=== PATIENT | female | born 1955 | race Caucasian/White ===

== ENCOUNTER → 2018-11-26 | Outpatient (CLI) | payer BC, OTHER ==
[~2018-11-26] VITALS: Ht 162.6 cm; Wt 53.7 kg
[~2018-11-26] MED LIST: CALCIUM500 M1 PO; OXYBUTYNIN 5 MG5 M2 PO; PROLIA60 MG/1 ML SUBQ; UNICOMPLEX M TA1 TA1 PO; [UNRECOGNIZED DRUG - OTHER] PO
[2018-11-26 13:53] VITALS: BP 114/74
--- NOTE | 2018-11-26 14:09 | NUR ---
Pain Clinic Assessment: 1. History of Osteoarthritis: History of Rheumatoid Arthritis: 2. Height: 5 ft. 4 in. 162.6 cm. Weight: 118.4 lb. oz. 53.706 kg. Patient's BMI: 20.3 3. Vital Signs: BP: 114/74 Pulse: 62 Resp: 16 Temp: 02 Sat: 98 ECG Mon: 4. Pain Intensity: 8 5. Fall Risk: Dizziness: N Needs help standing or walking: N Fallen in the last 3 months: N Fall risk comments: 6. Patient on Blood Thinner: None 7. History of Hypertension: N 8. Opioid Therapy greater than 6 weeks: N Opiate Contract Signed: 9. Risk Assessment Tool Provided: LOW 10. Functional Assessment Tool: 11. Recreational Drug Use: Never Drug Type: Tobacco Use: Never Smoker Tobacco Type: Amount or Packs/day: How Many Years: Alcohol Use: Yes Frequency: Weekly Quant: 5
--- NOTE | 2018-12-03 07:48 | HPC ---
[facility] [place] [address] PAIN MANAGEMENT CONSULTATION Name: BARBER MCMAHON Room #: REG SOTERO Grover.#: [id number] Admission: 11/26/18 ������������������ Attend Phys: Travis Avilez DO Discharge: ������������������ Date of : 57 Report #: [id number] THIS REPORT FOR: //name// CC: Ana Laura Frias MD DATE OF SERVICE: 11/26/2018 CHIEF COMPLAINT: Low back pain, left lower extremity pain with paresthesias. HISTORY OF PRESENT ILLNESS: As you know, the patient is a very pleasant 63-year-old female who reports acute onset of low back pain, left lower extremity pain and paresthesias, presented in 08/2018. She denies any specific injury or trauma that may have led to symptom development. She has trialed [id number] treatment options. Rest, relaxation and some stretching exercises, but did not notice improvement in symptoms. She sought further evaluation through her primary care physician who referred the patient to see Dr. hernandez at [facility]. The patient was seen by Dr. Breen on 11/07/2018. It was discussed with the patient the findings of a recent MRI, which showed significant changes at the L5-S1 level, believed to be the source of her left lower extremity symptoms. They discussed options for treatment. At that visit including surgical options. They chose to begin with conservative treatment and the patient was subsequently referred to our clinic to trial a lumbar epidural injection under fluoroscopic guidance to address lumbar radicular symptoms. The patient indicates her pain is periodic, describes the pain as cramping, aching, and throbbing along with numbness and tingling. She places current pain score at 8/10, daily average of 6-8/10 worst pain has been is 9/10. The patient states that her pain is exacerbated with unknown activities, improves with nothing to date. She has been referred to our service by her neurosurgeon, Dr. Ana Laura Breen for evaluation for lumbar radiculopathy. PAST MEDICAL HISTORY: 1. History of seizure activity. 2. Pelvic floor dysfunction. PAST SURGICAL HISTORY: 1. Hysterectomy and pelvic floor repair. 2. Open reduction and internal fixation of a left foot injury. SOCIAL HISTORY: The patient denies tobacco, IV or illicit drug use. Admits to approximately 5 alcoholic beverages per week. 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 She is working, not receiving workmen's compensation [place] [address] PAIN MANAGEMENT CONSULTATION Name: BARBER MCMAHON [id number] Admission: 11/26/18 ������������������ Attend Phys: Travis Avilez DO Discharge: ������������������ Date of : 57 Report #: [id number] to obtain disability benefits. She is not in litigation in regards to pain. She is unaccompanied at today's visit. REVIEW OF SYSTEMS: Positive for wearing corrective eyewear, hearing loss with tinnitus, constipation, frequent urination, low back pain, left lower extremity pain and paresthesias, numbness and tingling sensations. All other review of systems negative per 12-point review of systems other than those listed in history of present illness. Pain impact score 32 of 70 indicating moderate interference of daily activities secondary to pain. ALLERGIES: ALENDRONATE. CURRENT MEDICATIONS: Prolia 60 mg subcutaneous twice a year, oxybutynin 5 mg twice a day, multivitamin 1 tab per day, calcium carbonate 500 mg once a day, vitamin D and vitamin E supplements once a day. IMAGING: MRI lumbar spine obtained 10/22/2018 shows T12-L1 unremarkable, L1-L2 unremarkable, L2-L3 shows no central canal or neural foraminal stenosis, mild facet arthropathy. On 07/22/2018 shows effacement of ventral thecal sac due to disk desiccation and disk space narrowing with circumferential disk bulge. This narrows the canal to 8.5 mm. There is moderate bilateral hypertrophic degenerative changes and interspinal spurring, ligamentum flavum hypertrophy is present with 5 mm thickness, mild bilateral symmetric neural foraminal narrowing and mild effacement of the undersurface of both exiting L3 nerve roots. L4-L5 mild right paracentral right foraminal disk bulge, bilateral facet arthropathy, ligamentum flavum hypertrophy, mild central canal stenosis with measurement of 9 mm. There is a mild bilateral symmetrical neural foraminal stenosis. L5-S1, broad-based left paracentral disk protrusion associated with posterior zone of hyperintensity consistent with annular tear, advanced bilateral hypertrophic degenerative changes of the facet joints along with ligamentum flavum hypertrophy. There is left lateral recess narrowing, posterior displacing the left S1 nerve root and effacing the nerve root by the disk protrusion, mild neural foraminal narrowing, but no significant L5 nerve root effacement. PHYSICAL EXAMINATION: VITAL SIGNS: Blood pressure 114/74, pulse 62, respiratory rate 16 and unlabored. The patient is 98% on room air, height 5 feet 4 inches tall, weight 118.4 pounds, BMI calculated 20.3. GENERAL: Well-developed, well-nourished, well-hydrated 63-year-old female appearing stated age, placing current pain score 8/10. HEENT: Normocephalic, atraumatic. Pupils equal, round, reactive to light. Extraocular muscles are intact. Sclerae nonicteric without injection. NEUROLOGIC: Cranial nerves II-XII grossly intact. Speech is fluent. [facility] [address] [place] [address] PAIN MANAGEMENT CONSULTATION Name: BARBER MCMAHON Room #: REG [facility].#: [id number] Admission: 11/26/18 ������������������ Attend Phys: Travis Avilez DO Discharge: ������������������ Date of : 57 Report #: [id number] patient deemed an excellent historian. LUNGS: Clear, no wheeze, rhonchi or rales. CARDIOVASCULAR: Regular. No appreciable gallop, no rub. ABDOMEN: Soft, nontender, nondistended, normal active bowel sounds. EXTREMITIES: Show no clubbing, no cyanosis, and no edema. MUSCULOSKELETAL: Lower extremity strength equal and symmetrical 5/5, intact to light touch from L1 through S2 dermatomes. Seated straight leg raising negative. Supine straight leg raising positive on the left. Angeline's test negative. Modified Gaenslen's positive for axial low back pain. Ankle clonus negative. Babinski is negative. Station and gait are normal. The patient is able to toe walk, heel walk and tandem gait without complications. Lumbar provocation testing is met with mild increase in pain. There is mild restriction of motion with rotation and forehead flexion. ASSESSMENT: 1. Symptomatic lumbar radiculopathy. 2. Spinal stenosis of lumbar spine. 3. Displacement of lumbar intervertebral disk with radiculopathy. 4. Lumbosacral spondylosis with radiculopathy. 5. Neural foraminal stenosis of lumbar spine. 6. Facet arthropathy of the lumbar spine. 7. Lumbar degeneration. 8. Intractable pain. PLAN: 1. Based on today's physical exam and history the patient has provided, the description the patient uses in regards to pain as well as location of symptoms and the findings of her recent MRI showing changes at the L5-S1 level corresponding to the left nerve root impingement of the S1 nerve likely source of the patient's lumbar radiculopathy. The patient and I discussed treatment options for lumbar radicular symptoms today, the following was discussed with the patient. We discussed physical therapy, stretching exercises and traction techniques as a treatment course. This is very conservative but could help the patient overall. We discussed medication management changes adding neuropathic pain medications in hopes of improving overall pain. We discussed epidural injections for which the patient was referred to our service. We also discussed spinal cord stimulator therapy and ultimately surgical options to decompress the S1 nerve root at the L5-S1 level. After reviewing the risks and benefits of all proposed treatment options, the patient chose to look towards medication management initially and then an epidural injection after she returns from her trip to [place]. The patient will be started on Lyrica. We have provided her samples of the medication 50 mg dose, will begin 1 tab p.o. at bedtime in 3 [place] [address] PAIN MANAGEMENT CONSULTATION Name: BARBER MCMAHON Room #: REG SOTERO Lozoya#: [id number] Admission: 11/26/18 ������������������ Attend Phys: Travis Avilez DO Discharge: ������������������ Date of : 57 Report #: [id number] not noting side effects such as somnolence, decreased mental acuity, disorientation, confusion and no improvement in symptoms, she was then to escalate the dose to 100 mg p.o. at bedtime. We recommend she take the medication approximately one hour before bedtime. She is to watch for any side effects with increasing the medication including as indicated above sleepiness, disorientation, confusion, mental slowing. If she notes side effects, discontinue to the dose prior continue the medication while on her trip. The patient was given samples of Lyrica 50 mg tablet. I have given her 63 tablets for trial these were given to her in sample form today. She can contact our clinic with any questions or concerns. 2. The patient and I did discuss the possibility of undergoing a lumbar epidural injection. We will begin the preauthorization process for this patient to undergo the procedure. She wishes to delay the procedure until she returns from her trip to [place], which is planned starting next Sunday. When she returns from this 10-day trip, she will then return to undergo the first in a series of epidural injections. We will begin the authorization process and have this available for when she returns to undergo that procedure. We are hopeful the patient will see good benefit with the medication provided and will not need this epidural injection, but we do wish to have this approved, so that we have available if she requires. 3. We wish to thank the patient's neurosurgeon, Dr. Ana Laura Breen for the referral of the patient to our clinic. We will keep you apprised of response to treatment as we address her lumbar radicular symptoms secondary to the findings at the L5-S1 level causing impingement of the left S1 nerve root, correlating the patient's current symptoms. Again, we wish to thank you for the opportunity to see the patient in consultation. ��������������������������������������������� <ELECTRONICALLY SIGNED> ���������������������������������������� By: Travis Avilez DO ��������������������������������������������� 12/03/18 [id number] Travis Avilez DO /nt
== END ==
LOC: PAIN 09:43
DX: M47.27 Other spondylosis with radiculopathy, lumbosacral region (principal); M48.062 Spinal stenosis, lumbar region with neurogenic claudication; M51.16 Intervertebral disc disorders with radiculopathy, lumbar region; M12.88 Other specific arthropathies, not elsewhere classified, other specified site; G89.4 Chronic pain syndrome; Z79.899 Other long term (current) drug therapy

== ENCOUNTER → 2018-12-17 | Outpatient (CLI) | payer BC, OTHER ==
[~2018-12-17] VITALS: Ht 162.6 cm; Wt 55.5 kg
--- NOTE | ~2018-12-17 | HPC ---
[facility] [address] [place] [address] PAIN MANAGEMENT CONSULTATION Name: BARBER MCMAHON Room #: REG SOTERO Devora#: [id number] Admission: 12/17/18 ������������������ Attend Phys: Travis Avilez DO Discharge: ������������������ Date of : 57 Report #: [id number] THIS REPORT FOR: //name// CC: Ana Laura Frias DATE OF SERVICE: 12/17/2018 REFERRING PHYSICIAN: Ana Laura Breen MD. PRIMARY CARE PHYSICIAN: Meseret Frias MD. CHIEF COMPLAINT: Low back pain, left lower extremity pain and paresthesias. HISTORY OF PRESENT ILLNESS: As you know, the patient is a very pleasant 63-year-old female who reports acute onset of low back pain, left lower extremity pain and paresthesias, presented 08/2018. Denied any specific injury or trauma that led to symptom development. She sought evaluation with Dr. Breen at [facility] where they discussed options for treatment. She was referred to our clinic to trial epidural injections to determine if her symptoms could improve with more conservative treatment options. We saw the patient in consultation on 11/26/2018 where she was describing pain levels of up to 8-9/10. She was diagnosed with symptomatic lumbar radiculopathy secondary to spinal stenosis of the lumbar spine. Her spinal stenosis is multifactorial due to displaced lumbar intervertebral disks and facet arthropathy causing central canal stenosis and neural foraminal stenosis. We discussed treatment options at that initial visit and the patient chose to undergo a lumbar epidural injection. We have completed the preauthorization process and the patient has returned to undergo the first in the series of epidural injections in hopes of improving pain. Today, the patient is placing pain score at 5-6/10. She denies new injury, trauma or any changes in medical history since our last visit. ALLERGIES: ALENDRONATE. CURRENT MEDICATIONS: Vitamin E 400 units per day, calcium carbonate 500 mg once a daily, multivitamin 1 tab per day, oxybutynin 5 mg per day, Prolia 60 mg subcutaneous twice a year. SOCIAL HISTORY: The patient denies tobacco, IV or illicit drug use. Admits to approximately 5 alcohol beverages per week. 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 She is working, not receiving workmen's compensation, unaccompanied today. IMAGING: No new imaging available. [address] [address] PAIN MANAGEMENT CONSULTATION Name: BARBER MCMAHON Room #: REG [facility] Lozoya#: [id number] Admission: 12/17/18 ������������������ Attend Phys: Travis Avilez DO Discharge: ������������������ Date of : 57 Report #: [id number] PHYSICAL EXAMINATION: VITAL SIGNS: Blood pressure 100/64, pulse 56, respiratory rate 14 and unlabored. The patient is 100% on room air. Height 5 feet 4 inches tall, weight 122.4 pounds, BMI calculated 21.0. GENERAL: Well-developed, well-nourished, well-hydrated 63-year-old female appearing stated age, placing current pain score 5-6/10. HEENT: Normocephalic, atraumatic. Pupils equal, round, reactive to light. EXTREMITIES: Show no clubbing, no cyanosis, and no edema. MUSCULOSKELETAL: Lower extremity strength appears symmetrical 5/5, intact to light touch from L1 through S2 dermatomes. Seated straight leg raising negative. Supine straight leg raising positive left. Gait mildly antalgic favoring left lower extremity over right. ASSESSMENT: 1. Symptomatic lumbar radiculopathy. 2. Spinal stenosis of lumbar spine. 3. Displacement of lumbar intervertebral disk with radiculopathy. 4. Lumbosacral spondylosis with radiculopathy. 5. Neural foraminal stenosis of lumbar spine. 6. Facet arthropathy of the lumbar spine. 7. Lumbar degeneration. 8. Chronic intractable pain. PLAN: 1. The patient returns today in followup visit to undergo first in a series of lumbar epidural injections under fluoroscopic guidance. We did provide the patient a small dose of Xanax 0.25 mg prior to the procedure for anxiety. She is prepared to undergo the procedure today. We have consented her to undergo the procedure with the risks that include but are not necessarily limited to bleeding, bruising, infection, worsening pain, no relief of pain and also risk of temporary or permanent muscle weakness, temporary or permanent nerve damage, possible paralysis and . The patient states understood and wished to proceed. 2. No medication changes made at today's visit. The patient will continue current medical therapy as previously prescribed. 3. We will see the patient back in followup visit in approximately 31 days. At that time, we will review the efficacy of the first in a series of lumbar epidural injection to determine if next in the series would be necessary. PROCEDURE NOTE DESCRIPTION OF PROCEDURE: L5-S1 left paramedian epidural steroid injection under fluoroscopic guidance. This is the first procedure of the first series that the patient is undergoing. [facility] [address] [place] [address] PAIN MANAGEMENT CONSULTATION Name: BARBER MCMAHON Room #: REG CLCornelio Lozoya#: [id number] Admission: 12/17/18 ������������������ Attend Phys: Travis Avilez DO Discharge: ������������������ Date of : 56 Report #: [id number] After obtaining written consent, the patient was taken back to the fluoroscopy suite, placed in a prone position with pillow under the abdomen to decrease lumbar lordosis. The skin overlying the lumbosacral area was then prepped and draped in aseptic fashion. The L5-S1 vertebral interspace was then identified by AP fluoroscopy. The skin and subcutaneous tissue overlying the target site of injection was anesthetized with 3 mL 1% lidocaine. A 20-gauge 3-1/2 inch Tuohy needle was then advanced under fluoroscopic guidance towards the epidural space using a left paramedian approach. The epidural space was identified using loss of resistance to air technique. After negative aspiration for heme or cerebrospinal fluid, a total of 1 mL of Omnipaque was injected. A lumbar epidurogram was confirmed using both AP and lateral fluoroscopy. After negative aspiration for heme or cerebrospinal fluid, 5 mL of a solution containing 2 mL, 40 mg per mL 80 mg total triamcinolone, 3 mL of lidocaine 1% was injected in increments. Contrast spread was noted posterior epidural space. The needle was then retracted approximately half way and needle tract flushed with 1 mL of 1% lidocaine. Needle was then removed. There were no apparent sensory or motor deficits in the lower extremity following the procedure. A sterile bandage was placed over the injection site. The heart rate, pulse, oximetry and blood pressure were continuously monitored after the procedure. There were no apparent complications. The patient tolerated the procedure well and was carefully escorted to the recovery room in stable condition. There were no apparent complications. After meeting discharge criteria, the patient was then discharged home. ��������������������������������������������� ���������������������������������������� By: ��������������������������������������������� [id number] Travis Avilez DO /denny
[2018-12-17 10:05] VITALS: BP 100/64
--- NOTE | 2018-12-17 10:28 | NUR ---
Pain Clinic Assessment: 1. History of Osteoarthritis: DENIES History of Rheumatoid Arthritis: DENIES 2. Height: 5 ft. 4 in. 162.6 cm. Weight: 122.4 lb. oz. 55.520 kg. Patient's BMI: 21.0 3. Vital Signs: BP: 100/64 Pulse: 56 Resp: 14 Temp: 02 Sat: 100 ECG Mon: 4. Pain Intensity: 5-6 5. Fall Risk: Dizziness: N Needs help standing or walking: N Fallen in the last 3 months: N Fall risk comments: 6. Patient on Blood Thinner: None 7. History of Hypertension: N 8. Opioid Therapy greater than 6 weeks: N Opiate Contract Signed: 9. Risk Assessment Tool Provided: LOW 10. Functional Assessment Tool: 11. Recreational Drug Use: Never Drug Type: Tobacco Use: Never Smoker Tobacco Type: Amount or Packs/day: How Many Years: Alcohol Use: Yes Frequency: Daily Quant: WITH DINNER
== END | disposition home or self-care (01) ==
LOC: PAIN 06:52
DX: M51.16 Intervertebral disc disorders with radiculopathy, lumbar region (principal); M48.061 Spinal stenosis, lumbar region without neurogenic claudication; M47.27 Other spondylosis with radiculopathy, lumbosacral region; M47.26 Other spondylosis with radiculopathy, lumbar region; G89.29 Other chronic pain; Z88.8 Allergy status to other drugs, medicaments and biological substances; Z79.899 Other long term (current) drug therapy; Z98.890 Other specified postprocedural states

== ENCOUNTER → 2019-01-28 | Outpatient (CLI) | payer BC, OTHER ==
[~2019-01-28] VITALS: Ht 162.6 cm; Wt 54.0 kg
[~2019-01-28] MED LIST changes: +MAGNESIUM PO; +NEURONTIN 300300 M1 PO; +OXYBUTYNIN CHLOR5 M1 PO; +POTASIUM PO
[2019-01-28 09:16] VITALS: BP 102/70
--- NOTE | 2019-01-28 09:36 | NUR ---
Pain Clinic Assessment: 1. History of Osteoarthritis: DENIES History of Rheumatoid Arthritis: DENIES 2. Height: 5 ft. 4 in. 162.6 cm. Weight: 119.0 lb. oz. 53.978 kg. Patient's BMI: 20.4 3. Vital Signs: BP: 102/70 Pulse: 70 Resp: 14 Temp: 02 Sat: 100 ECG Mon: 4. Pain Intensity: 0 5. Fall Risk: Dizziness: Y Needs help standing or walking: N Fallen in the last 3 months: N Fall risk comments: 6. Patient on Blood Thinner: None 7. History of Hypertension: N 8. Opioid Therapy greater than 6 weeks: N Opiate Contract Signed: 9. Risk Assessment Tool Provided: LOW 10. Functional Assessment Tool: 11. Recreational Drug Use: Never Drug Type: Tobacco Use: Never Smoker Tobacco Type: Amount or Packs/day: How Many Years: Alcohol Use: Yes Frequency: Quant:
--- NOTE | 2019-02-11 13:40 | HPC ---
[address] [address] PAIN MANAGEMENT CONSULTATION Name: BARBER MCMAHON Room #: REG SOTERO Grover.#: [id number] Admission: 01/28/19 ������������������ Attend Phys: Travis Avilez DO Discharge: ������������������ Date of : 57 Report #: [id number] THIS REPORT FOR: //name// CC: Ana Laura Frias MD DATE OF SERVICE: 01/28/2019 CHIEF COMPLAINT: Low back pain, left lower extremity pain and paresthesias. HISTORY OF PRESENT ILLNESS: As you know, the patient is a very pleasant 63-year-old female who was referred to our clinic by her Neurosurgeon, Dr. Ana Laura Breen to undergo lumbar epidural injection under fluoroscopic guidance to address acute lumbar radiculopathy. We saw the patient initially on 11/26/2018 where she was at consultation due to third libertarian payer restrictions, authorization had to be obtained and the patient in followup visit to undergo a lumbar epidural injection at our next visit. She did very well with this epidural injection, reporting today pain level of 0/10. She reports near 100% improvement overall in symptoms from a pain standpoint, but she continues to experience some numbness and tingling sensations, which are "just irritating". She returns to discuss treatment options for these residual radicular symptoms. She denies any new injury, trauma or any changes in medical history since her last visit. ALLERGIES: ALENDRONATE. CURRENT MEDICATIONS: Vitamin E 400 units per day, calcium carbonate 500 mg once a day, multivitamin 1 tab per day, oxybutynin 5 mg per day, Prolia 60 mg subcutaneous twice a year. SOCIAL HISTORY: The patient denies tobacco, IV or illicit drug use. Admits to approximately 5 alcohol beverages per week. 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 IMAGING: There is no new imaging available. PHYSICAL EXAMINATION: VITAL SIGNS: Blood pressure 102/70, pulse 70, respiratory rate 14 and unlabored. The patient is 100% on room air. Height 5 feet 4 inches tall, weight 119 pounds, BMI calculated 20.4. GENERAL: Well-developed, well-nourished, well-hydrated 63-year-old female appearing stated age, pain is rated today at 0/10. HEENT: Normocephalic, atraumatic. Pupils are equal, round, reactive to light. EXTREMITIES: Show no clubbing, no cyanosis, [place] [address] PAIN MANAGEMENT CONSULTATION Name: NEW MILFORDBARBER Room #: REG SOTERO Ren.R.#: [id number] Admission: 01/28/19 ������������������ Attend Phys: Travis Avilez DO Discharge: ������������������ Date of : 57 Report #: [id number] MUSCULOSKELETAL: Lower extremity strength equal and symmetrical 5/5, intact to light touch from L1 through S2 dermatomes. Seated straight leg raising negative. Supine straight leg raising positive on the left with paresthesias only. ASSESSMENT: 1. Symptomatic lumbar radiculopathy. 2. Spinal stenosis of lumbar spine. 3. Displacement of lumbar intervertebral disk with radiculopathy. 4. Lumbosacral spondylosis with radiculopathy. 5. Neural foraminal stenosis of lumbar spine. 6. Facet arthropathy of the lumbar spine. 7. Lumbar degeneration. 8. Chronic intractable pain. PLAN: 1. The patient has returned today in followup visit where she is indicating a complete resolution of her lumbar radicular pain. She continues to experience paresthesias in the foot area and she describes this as numbness and tingling. She has returned today in followup visit to discuss possible treatment options for the residual symptoms. We discussed with the patient that options for treatment would include reinitiation of physical therapy. We discussed neuropathic pain medication in the form of gabapentin or Lyrica as a possible treatment course. We also discussed repeating epidural injection in hopes of improving paresthesias and ultimately surgical options. After reviewing risks and benefits of all proposed treatment options, the patient chose to make changes in her medication management. 2. The patient was provided prescription of gabapentin 300 mg dose. We will start 1 tab p.o. at bedtime for 3 nights, then increase to 2 tabs p.o. at bedtime for 3 nights and then increase to 3 tabs p.o. at bedtime for a total of 900 mg. The patient was given #90 tablets. She was advised to watch for side effects of sleepiness, disorientation, confusion, mental slowing with the use of medication. If she notes any side effects, contact our clinic after reducing the dose to the dose prior to those side effects. The patient was advised we may need to titrate this medication further to reach efficacy. We will determine this at our next visit. 3. We are pleased to see the patient has done well. We will see her back in followup visit for further adjustments in medication management or to look towards interventional treatments. ��������������������������������������������� <ELECTRONICALLY SIGNED> ���������������������������������������� By: Travis Avilez DO ��������������������������������������������� 02/11/19 1340 1811 0100 Travis Avilez DO /nt
== END ==
LOC: PAIN 06:43
DX: M47.26 Other spondylosis with radiculopathy, lumbar region (principal); M48.062 Spinal stenosis, lumbar region with neurogenic claudication; M51.16 Intervertebral disc disorders with radiculopathy, lumbar region; M12.88 Other specific arthropathies, not elsewhere classified, other specified site; G89.4 Chronic pain syndrome

== ENCOUNTER → 2019-06-11 | Outpatient (CLI) | payer BC, OTHER ==
[~2019-06-11] VITALS: Ht 162.6 cm; Wt 56.3 kg
[~2019-06-11] MED LIST changes: +NEURONTIN300 MG PO
[2019-06-11 09:00] VITALS: BP 105/68
--- NOTE | 2019-06-11 09:05 | NUR ---
Pain Clinic Assessment: 1. History of Osteoarthritis: DENIES History of Rheumatoid Arthritis: DENIES 2. Height: 5 ft. 4 in. 162.6 cm. Weight: 124.2 lb. oz. 56.337 kg. Patient's BMI: 21.3 3. Vital Signs: BP: 105/68 Pulse: 57 Resp: 14 Temp: 02 Sat: 100 ECG Mon: 4. Pain Intensity: 4-5 5. Fall Risk: Dizziness: N Needs help standing or walking: N Fallen in the last 3 months: N Fall risk comments: 6. Patient on Blood Thinner: None 7. History of Hypertension: N 8. Opioid Therapy greater than 6 weeks: N Opiate Contract Signed: 9. Risk Assessment Tool Provided: LOW 10. Functional Assessment Tool: 11. Recreational Drug Use: Never Drug Type: Tobacco Use: Never Smoker Tobacco Type: Amount or Packs/day: How Many Years: Alcohol Use: Yes Frequency: Quant:
--- NOTE | 2019-06-12 08:26 | HPC ---
[facility] [address] [place] [address] PAIN MANAGEMENT CONSULTATION Name: BARBER MCMAHON Room #: REG SINDHUCornelio Lozoya#: [id number] Admission: 06/11/19 Attend Phys: Padmini Sun Discharge: Date of : 57 Report #: [id number] THIS REPORT FOR: //name// CC: Padmini Agrawal MD DATE OF SERVICE: 06/11/2019 CHIEF COMPLAINT: Low back pain, left lower extremity pain and paresthesias. HISTORY OF PRESENT ILLNESS: This is a very pleasant 63-year-old female who returns to the pain clinic today to report that her pain has returned in her left leg. It does radiate into her foot. She at this time is not experiencing any back pain. She is also having severe cramping, and numbness and tingling in this left leg. It started at the end of April. She had been taking some gabapentin at bedtime and feels that it is beneficial when she is able to take that medication, though she is out and is requesting a refill today. Her pain score today is a 4/5, again characterizes as cramping, numbness, tingling, stabbing, sharp pain. She feels that the medication as well as a previous injection was very beneficial, though she does not feel that she is needing another lumbar epidural steroid injection at this time. ALLERGIES: ALENDRONATE. CURRENT LIST OF MEDICATIONS: Gabapentin 300 mg at bedtime, magnesium, oxybutynin, vitamin D, calcium, multivitamin, and Prolia. PQRS: 1. The patient denies any rheumatoid or osteoarthritis. 2. Height is 5 feet 4 inches, weight is 124, BMI is 21. 3. Vital signs 105/68, pulse is 57, respirations 14, oxygen sat is 100. 4. Pain score is 4-5. 5. Denies dizziness, does not need help walking or standing, has not fallen in the last 3 months. 6. The patient is not on any blood thinners or medicine for hypertension. 7. Opiate therapy: The patient denies. 8. Risk assessment tool is low. Functional assessment is 32/70. 9. Recreational drug use, she denies, not a smoker, and occasionally drinks alcohol. PHYSICAL EXAMINATION: GENERAL: This is an alert and orientated, 63-year-old female who appears her stated age, placing her current pain score at 4/10. [address] [address] PAIN MANAGEMENT CONSULTATION Name: BARBER MCMAHON Room #: REG CLI Devora#: [id number] Admission: 06/11/19 Attend Phys: Padmini Sun Discharge: Date of : 57 Report #: [id number] HEENT: Normocephalic, atraumatic. Extraocular eye muscles are intact. EXTREMITIES: No clubbing, no cyanosis, no edema. MUSCULOSKELETAL: Lower extremity strength appears symmetrical and intact to light touch from L1-S2. Seated straight leg raising is negative and supine straight leg raising is positive on the left. She has a slightly antalgic gait. Denies any lumbar back pain currently. ASSESSMENT: 1. Symptomatic lumbar radiculopathy. 2. Spinal stenosis of the lumbar spine. 3. Displacement of the lumbar intervertebral disk with radiculopathy. 4. Lumbosacral spondylosis with radiculopathy. 5. Intractable back pain. 6. Lumbar degeneration. PLAN: 1. We discussed treatment options with the patient today. The patient reports that her lumbar epidural steroid injection in the past was very beneficial in controlling her pain, though she does not feel that she is having significant enough pain to warrant having another one at this time. She is wondering about other options. We did discuss the neuropathic pain medications that were beneficial. The patient has been taking 1-2 tablets at bedtime that does relieve some of her discomfort. We will refill her gabapentin 300 mg, #60 with 3 additional refills for the patient to take. We did remind the patient of the side effects of these medications, especially taking them as needed. 2. We discussed physical therapy, stretching exercises as a treatment option as well as nonsteroidal anti-inflammatories. The patient is limited on her intake of oral anti-inflammatories due to tinnitus in her right ear. The patient may try some roak-dct-pertdai anti-inflammatory creams. 3. I encouraged the patient if her pain symptoms increase that Dr. Avilez would gladly repeat her epidural steroid injection, which she did have 100% relief for several months. The patient states she will call as needed. 4. The patient is seen today in collaboration with Dr. Travis Avilez. <ELECTRONICALLY SIGNED> By: Padmini 06/12/19 0826 0952 28 Padmini Sun /denny
== END ==
LOC: PAIN 06:48
DX: M51.16 Intervertebral disc disorders with radiculopathy, lumbar region (principal); M48.061 Spinal stenosis, lumbar region without neurogenic claudication; M47.27 Other spondylosis with radiculopathy, lumbosacral region; G89.4 Chronic pain syndrome

== ENCOUNTER → 2021-06-14 | Outpatient (CLI) | payer BC, OTHER ==
[~2021-06-14] VITALS: Ht 162.6 cm; Wt 55.7 kg
[~2021-06-14] MED LIST changes: +FLEXERIL PO
[2021-06-14 10:14] VITALS: BP 120/75
--- NOTE | 2021-06-14 10:19 | NUR ---
Pain Clinic Assessment: 1. History of Osteoarthritis: DENIES History of Rheumatoid Arthritis: DENIES 2. Height: 5 ft. 4 in. 162.6 cm. Weight: 122.8 lb. oz. 55.702 kg. Patient's BMI: 21.1 3. Vital Signs: BP: 120/75 Pulse: 78 Resp: 18 Temp: 02 Sat: 99 ECG Mon: 4. Pain Intensity: 8 5. Fall Risk: Dizziness: N Needs help standing or walking: N Fallen in the last 3 months: N Fall risk comments: 6. Patient on Blood Thinner: None 7. History of Hypertension: N 8. Opioid Therapy greater than 6 weeks: N Opiate Contract Signed: 9. Risk Assessment Tool Provided: LOW 10. Functional Assessment Tool: 11. Recreational Drug Use: Never Drug Type: Tobacco Use: Never Smoker Tobacco Type: Amount or Packs/day: How Many Years: Alcohol Use: Yes Frequency: Quant:
--- NOTE | 2021-06-15 08:15 | HPC ---
[facility] [place] [address] PAIN MANAGEMENT CONSULTATION Name: BARBER MCMAHON Room #: REG SOTERO Devora#: [id number] Admission: 06/14/21 Attend Phys: Travis Avilez DO Discharge: Date of : 57 Report #: [id number] THIS REPORT FOR: cc: Meseret Frias MD, Jennifer S. MD Johnson, James E. DO ~ cc: Meseret Frias MD DATE OF SERVICE: 06/14/2021 CHIEF COMPLAINT: Low back pain, recurrent left lower extremity pain with paresthesias. HISTORY OF PRESENT ILLNESS: As you know, the patient is a very pleasant 65-year-old female, who returns to our pain clinic today with recurrence of low back pain, left lower extremity pain with paresthesias consistent with her lumbar radiculopathy. We last saw the patient in consultation, 06/09/2019, where we made some adjustments in her medication management. She had undergone an epidural injection on 01/28/2019, with excellent improvement in overall pain. She reported near 80-90% improvement in symptoms with the epidural injection. Unfortunately, over the past couple of weeks, her pain has begun to return. She denies injury or trauma. She returns today requesting a lumbar epidural injection under fluoroscopic guidance to address the recurrence of symptoms. She has trialled nvea-ruj-gdxzqmp medications, rest, relaxation and stretching exercises without benefit. She describes the pain more of a constant sensation with cramping, numbness, tingling, stabbing, electrical-like sharp sensations, radiating down the leg. She indicates pain is exacerbated with sitting, standing for any length of time or lying down, improves with epidural injections and medication management. She returns today in followup visit with recurrence of lumbar radiculopathy and requesting a lumbar epidural injection under fluoroscopic guidance. ALLERGIES: ALENDRONATE. CURRENT MEDICATIONS: Cyclobenzaprine, gabapentin, magnesium oxide, oxybutynin, vitamin D, vitamin E, calcium carbonate, multivitamin and Prolia. SOCIAL HISTORY: The patient denies tobacco, alcohol or IV or illicit drug use. She is unaccompanied at today's visit. IMAGING: No new imaging available. PHYSICAL EXAMINATION: VITAL SIGNS: Blood pressure 120/75, pulse 78, respiratory rate 18 and unlabored. The patient is 99% on room air. Height 5 feet 4 inches tall, weight 122.8 pounds, BMI calculated 21.1. GENERAL: A well-developed, well-nourished, well-hydrated 65[place] [address] PAIN MANAGEMENT CONSULTATION Name: LISANDROBARBER Room #: REG SOTERO Lozoya#: [id number] Admission: 06/14/21 Attend Phys: Travis Avilez DO Discharge: Date of : 57 Report #: [id number] appearing stated age, pain is rated today at 8/10. HEENT: Normocephalic, atraumatic. Pupils are round. She is wearing a mask in compliance with COVID-19 regulations and hospital policy. EXTREMITIES: Show no clubbing. No cyanosis. No appreciable edema. MUSCULOSKELETAL: Lower extremity strength today is symmetrical, 5/5. Muscle bulk and tone is symmetrical in comparing left lower extremity to right. Seated straight leg raising is negative. Supine straight leg raising positive on the left approximately 65-degree angle. Ankle clonus negative. Babinski is negative. Gait is slightly antalgic appears to be favoring left lower extremity over the right. Able to toe walk and heel walk. ASSESSMENT: 1. Symptomatic lumbar radiculopathy. 2. Spinal stenosis of lumbar spine. 3. Displacement of lumbar intervertebral disk with radiculopathy. 4. Lumbosacral spondylosis with radiculopathy. 5. Lumbar degeneration. PLAN: 1. The patient returns today in followup visit having recurrence of lumbar radicular symptoms. The patient states she was doing very well until just recently, approximately 2-3 weeks ago where she began to experience progressively worsening pain and numbness and tingling. She trialled tuky-iel-dlibony medications, rest, relaxation and stretching exercises without benefit. She has made today's appointment to discuss the possibility of undergoing a lumbar epidural injection under fluoroscopic guidance. She has noted excellent benefit with the injection provided in 2019 with resolution of symptoms until just recently. The patient and I discussed the epidural injection requested and other treatment options. She chose to move forward with the epidural injection as she has seen benefit in the past. She has been advised risks and benefits of the procedure, states understood and wished to proceed. 2. No medication changes made at today's visit. The patient will continue current medical therapy as prior prescribed. 3. Plan to see the patient back in followup visit on an as needed basis for the next in the series of lumbar epidural injections. I am hopeful the patient will once again see good and prolonged benefit with the procedure provided today. PROCEDURE NOTE DESCRIPTION OF PROCEDURE: L5-S1 left parasagittal epidural steroid injection under fluoroscopic guidance. After obtaining written consent, the patient was taken back to fluoroscopy suite, placed in prone position pillow under abdomen to decrease lumbar lordosis. Skin overlying lumbosacral area prepped and draped in aseptic [address] [address] PAIN MANAGEMENT CONSULTATION Name: BARBER MCMAHON Room #: REG Cornelio Lozoya#: [id number] Admission: 06/14/21 Attend Phys: Travis Avilez DO Discharge: Date of : 57 Report #: [id number] fashion. L5-S1 vertebral interspace identified by AP fluoroscopy. Skin and subcutaneous tissue overlying target site injection anesthetized with 3 mL 1% lidocaine. A 20 gauge 3-1/2 inch Tuohy needle advanced under fluoroscopic guidance towards the epidural space using a left parasagittal approach. Epidural space identified using loss of resistance to air technique. After negative aspiration for heme or cerebrospinal fluid, 1 mL of Omnipaque injected. Lumbar epidurogram was confirmed using both AP and lateral fluoroscopy. After negative aspiration for heme or cerebrospinal fluid, 5 mL solution containing 2 mL 40 mg per mL 80 mg total triamcinolone along with 3 mL of lidocaine, 1% injected slowly. Needle retracted chcf flushed with 1 mL of 1% lidocaine, then removed. Sterile bandage placed over injection site. No new motor deficits present in lower extremity following procedure. The patient tolerated the procedure well, carefully escorted to recovery room in stable condition. No apparent complications. After meeting discharge criteria, the patient discharged home. <ELECTRONICALLY SIGNED> By: Travis Avilez DO 06/15/21 0815 1113 2209 Travis Avilez DO /nt
== END | disposition home or self-care (01) ==
LOC: PAIN 08:44
PROVIDERS: ATTEND Anesthesiology Pain Medicine
DX: M51.16 Intervertebral disc disorders with radiculopathy, lumbar region (principal); M48.061 Spinal stenosis, lumbar region without neurogenic claudication; M47.27 Other spondylosis with radiculopathy, lumbosacral region; G89.29 Other chronic pain; Z98.890 Other specified postprocedural states; Z79.899 Other long term (current) drug therapy; Z88.8 Allergy status to other drugs, medicaments and biological substances

== ENCOUNTER → 2021-06-29 | Outpatient (CLI) | payer BC, OTHER ==
[~2021-06-29] VITALS: Ht 162.6 cm; Wt 54.4 kg
--- NOTE | ~2021-06-29 | HPC ---
[facility] [place] [address] PAIN MANAGEMENT CONSULTATION Name: BARBER MCMAHON Room #: REG SOTERO Grover.#: [id number] Admission: 06/29/21 Attend Phys: Travis Avilez DO Discharge: Date of : 57 Report #: [id number] THIS REPORT FOR: cc: Meseret Frias MD, Jennifer S. MD Johnson, James E. DO ~ cc: Meseret Frias MD DATE OF SERVICE: 06/29/2021 REFERRING PHYSICIAN: Dr. Meseret Frias CHIEF COMPLAINT: Low back pain, left lower extremity pain with paresthesias. HISTORY OF PRESENT ILLNESS: As you know, the patient is a very pleasant 65-year-old female who returns today in followup visit having noted only about 50% improvement in overall pain with the epidural injection provided at last clinic visit. She states she is still maintaining relief at 50%, but is disturbed that the pain was not resolved completely. She returns to discuss options for treatment. She states her pain is constant, cramping, numbness, tingling, sharp and stabbing in sensation, exacerbated with standing, sitting or doing any type of activity, improves with injections and medication management. She returns today to discuss options for treatment to address the residual 6/10 pain she is experiencing. She denies new injury, new trauma that may have led to symptom development. She states she was very active after undergoing the epidural injection and may have caused dissipation of the medication away from the site with this activity. ALLERGIES: ALENDRONATE. CURRENT MEDICATIONS: Cyclobenzaprine, gabapentin, magnesium oxide, oxybutynin, vitamin D, vitamin E, calcium carbonate, multivitamins and Prolia. SOCIAL HISTORY: The patient denies tobacco, alcohol or IV or illicit drug use. She is unaccompanied today. IMAGING: No new imaging available. PHYSICAL EXAMINATION: VITAL SIGNS: Blood pressure 119/68, pulse is 63, respiratory rate 14 and unlabored. The patient 98% on room air. Height 5 feet 4 inches tall, weight 120 pounds, BMI calculated 20.6. GENERAL: Well-developed, well-nourished, well-hydrated 65-year-old female appearing stated age, pain is rated today 6/10. HEENT: Normocephalic, atraumatic. Pupils are round. She is wearing a mask in compliance with COVID-19 regulations. EXTREMITIES: Show no clubbing, no cyanosis. No appreciable edema. [facility] [address] [place] [address] PAIN MANAGEMENT CONSULTATION Name: BARBER MCMAHON Room #: REG [facility]#: [id number] Admission: 06/29/21 Attend Phys: Travis Avilez DO Discharge: Date of : 57 Report #: [id number] MUSCULOSKELETAL: Seated straight leg raising is negative. Supine straight leg raising is positive on the left. Angeline's test is negative. Modified Gaenslen's positive for axial back pain. Ankle clonus negative. She has a slightly antalgic gait favoring left lower extremity over right. ASSESSMENT: 1. Symptomatic lumbar radiculopathy. 2. Spinal stenosis of lumbar spine. 3. Displacement of lumbar intervertebral disk with radiculopathy. 4. Lumbosacral spondylosis with radiculopathy. 5. Lumbar degeneration. 6. Chronic intractable pain. PLAN: 1. The patient returns today in followup visit having noted only about 50% improvement in overall pain with the epidural injection under fluoroscopic guidance. The patient is somewhat upset about the fact that she did not receive 100% improvement in overall pain. We have advised the patient at this visit and every visit prior to that 100% resolution of pain is very difficult to obtain and when it is obtained, it is very short-lived. We are in the process of treating for tolerable symptom relief and she has had 50% improvement. I do feel that she has pathology significant enough that surgical options may be ultimately necessary and she is trying to avoid that issue. We discussed the other treatment options we have available today as she is not able to undergo the next in the series of epidural injections at least for the next 21 days as she has to be 31 days plus away from the injection to be able to undergo the next in the series. This is based on the patient's insurance guidelines. The following was discussed with the patient for other treatment options. We discussed physical therapy, stretching exercises and core strengthening as a treatment approach. We discussed adjustments in medication management. She is on extremely low dose of gabapentin is noting no side effects, but also noticing no analgesic benefit. This could rapidly be escalated. We also discussed awaiting the next in the series of epidural injections to try to build on success of this injection giving 50% improvement. We also discussed with the patient's spinal cord stimulator therapy and ultimately surgical decompression. After reviewing risks and benefits of all proposed treatment options, the patient chose to make adjustments in medication management. 2. The patient will increase gabapentin to 3 tabs p.o. at bedtime starting tonight that is a 900 mg dose. She will continue that for 3 nights. If no improvement in symptoms and no side effects of sleepiness, disorientation, confusion, mental slowing, then increase to 1 tab in the morning and 3 tabs at night for 3 nights, continuing the titration to 2 tabs in the morning and 3 tabs at night for 3 nights. If again no improvement in symptoms, no side effects, then 3 tabs in morning and 3 tabs at night. She will continue this titration to reach 900 mg 3 times a day if necessary. The patient was advised anytime during [facility] [address] [place] [address] PAIN MANAGEMENT CONSULTATION Name: LISANDROBARBER Room #: REG SOTERO Lozoya#: [id number] Admission: 06/29/21 Attend Phys: Travis Avilez DO Discharge: Date of : 57 Report #: [id number] the titration, she notes improvement in symptoms, stabilize at that dose, no further escalation. If no improvement in symptoms, no side effects, continue the titration as directed. 3. We offered to have the patient look into spinal cord stimulator technology. She is to this point not interested in that type of treatment. This is a viable alternative treatment options that we have available as you are aware, the patient could undergo a spinal cord stimulator trial. If it is ineffective move forward with a permanent implant. She could also look toward surgical options to decompress the lumbar region it is problematic and causing the left lower extremity symptoms. She wishes to delay that option as well. We will see her back in followup visit in to address medication management and possible next in the series of epidural injections. 4. The patient was provided prescription of gabapentin 300 mg dose. I have given her #180 tablets to begin the titration and continue the medication as indicated above. By: [id number] Travis Avilez DO /denny
[2021-06-29 11:17] VITALS: BP 119/68
--- NOTE | 2021-06-29 11:25 | NUR ---
Pain Clinic Assessment: 1. History of Osteoarthritis: DENIES History of Rheumatoid Arthritis: DENIES 2. Height: 5 ft. 4 in. 162.6 cm. Weight: 120.0 lb. oz. 54.432 kg. Patient's BMI: 20.6 3. Vital Signs: BP: 119/68 Pulse: 63 Resp: 14 Temp: 02 Sat: 98 ECG Mon: 4. Pain Intensity: 6 5. Fall Risk: Dizziness: N Needs help standing or walking: N Fallen in the last 3 months: N Fall risk comments: 6. Patient on Blood Thinner: None 7. History of Hypertension: N 8. Opioid Therapy greater than 6 weeks: N Opiate Contract Signed: 9. Risk Assessment Tool Provided: LOW 10. Functional Assessment Tool: 11. Recreational Drug Use: Never Drug Type: Tobacco Use: Never Smoker Tobacco Type: Amount or Packs/day: How Many Years: Alcohol Use: Yes Frequency: Special Occasions Quant: 1
== END ==
LOC: PAIN 10:04
PROVIDERS: ATTEND Anesthesiology Pain Medicine
DX: M47.27 Other spondylosis with radiculopathy, lumbosacral region (principal); M51.16 Intervertebral disc disorders with radiculopathy, lumbar region; M48.061 Spinal stenosis, lumbar region without neurogenic claudication; G89.29 Other chronic pain; Z79.899 Other long term (current) drug therapy; Z88.8 Allergy status to other drugs, medicaments and biological substances